=== PATIENT | female | born 1935 | race Caucasian/White ===

== ENCOUNTER 2020-07-05 10:18 | Emergency (ER) | payer MEDICARE, OTHER ==
[~2020-07-05 10:18] MED LIST: ACYCLOVIR800 MG PO; AMITIZA8 MCG PO; ATARAX25 MG PO; BACITRACIN15 GM TOP; BACLOFEN 10MG T10 MG PO; BUSPIRONE HCL15 M1 PO; BUSPIRONE HCL30 MG PO; CARAFATE1 GM PO; CIPROFLOXACIN500 M1 PO; COZAAR50 MG PO; CYTOTEC100 MCG PO; DESVENLAFAXINE100 M3 PO; DESVENLAFAXINE50 M3 PO; DIFLUCAN150 MG PO; DILAUDID2 MG PO; FLEXERIL10 MG PO; FLEXERIL5 MG PO; GABAPENTIN100 MG PO; LEVSIN-SL0.125 M1 SL; LIDOCAINE 5% P1 EACH TOP; LOSARTAN POTASS50 MG PO; METHOCARBAMOL500 MG PO; MISOPROSTOL PO; MYLICON80 MG PO; NEURONTIN100 MG PO; OMEPRAZOLE40 MG PO; ONDANSETRON HCL4 MG PO; ONDANSETRON ODT4 MG PO; ONDANSETRON ODT4 MG SL; PANTOPRAZOLE SO40 MG PO; PERCOCET 5-3251 EACH PO; PHENERGAN12.5 M1 PO; PHENERGAN25 M1 PO; PHENTERMINE H37.5 MG PO; PROTONIX 40MG T40 MG PO; QUETIAPINE FUM150 MG PO; REQUIP1 MG PO; ROBAXIN500 MG PO; ROPINIROLE HCL6 MG PO; SEROQUEL 25MG T25 MG PO; SINEQUAN50 MG PO; TRAMADOL HCL50 MG PO; VALACYCLOVIR1000 MG PO; VOLTAREN **OUT75 MG PO; ZANTAC150 MG PO
[2020-08-06] MEDS ORDERED: FOLIC ACID1 MG PO (06:11)
[2020-08-06] MEDS ORDERED: CYMBALTA60 MG PO (06:11)
[2020-08-06] MEDS ORDERED: NEURONTIN100 MG PO (06:13)
[2020-08-06] MEDS ORDERED: CETIRIZINE HCL10 MG PO (06:14)
[2020-08-06] MEDS ORDERED: CLONAZEPAM0.5 MG PO (06:14)
[2020-08-06] MEDS ORDERED: MIRAPEX1 MG PO (06:15)
[2020-08-06] MEDS ORDERED: HYDROXYZINE PAM25 MG PO (06:16)
[2020-08-06] MEDS ORDERED: SINGULAIR10 MG PO (06:16)
[2020-08-06] MEDS ORDERED: ZOLPIDEM TARTRAT5 MG PO (06:16)
[2020-08-06] MEDS ORDERED: ULTRAM50 MG PO (06:17)
[2020-08-06] MEDS ORDERED: PERCOCET 5-3251 EACH PO (06:48)
[2020-08-06] MEDS ORDERED: VENTOLIN HFA IN18 GM INH ×2 (06:51→06:52)
[2020-08-06] MEDS ORDERED: ASPIRIN325 MG PO (08:38)
[2020-09-04] MEDS ORDERED: ULTRAM50 MG PO (17:26)
[2020-09-23] MEDS ORDERED: NORCO 5/3251 EACH PO (11:31)
[2020-11-05] MEDS ORDERED: TRAMADOL HCL50 MG PO (13:04)
== END 2020-07-05 12:32 | disposition home or self-care (01) ==
LOC: FER 10:18
DX: M25.552 Pain in left hip (principal); M51.36 Other intervertebral disc degeneration, lumbar region; G89.29 Other chronic pain; I10 Essential (primary) hypertension; Z88.5 Allergy status to narcotic agent; W10.9XXA Fall (on) (from) unspecified stairs and steps, initial encounter; Y92.009 Unspecified place in unspecified non-institutional (private) residence as the place of occurrence of the external cause
CPT/HCPCS: 73502; 73721; J1170

== ENCOUNTER → 2020-08-06 | Day surgery (SDC) | payer MEDICARE, OTHER ==
[~2020-08-06] MED LIST changes: +ASPIRIN325 MG PO; +CETIRIZINE HCL10 MG PO; +CLONAZEPAM0.5 MG PO; +CYMBALTA60 MG PO; +FOLIC ACID1 MG PO; +HYDROXYZINE PAM25 MG PO; +MIRAPEX1 MG PO; +NORCO 5-325 TA1 EACH PO; +NORCO 5/3251 EACH PO; +SINGULAIR10 MG PO; +ULTRAM50 MG PO; +VENTOLIN HFA IN18 GM INH; +ZOLPIDEM TARTRAT5 MG PO
[2020-08-06 06:43] LABS: HCT 34.4 % (37.0-47.0); HGB 10.8 g/dl (12.5-16.0); MCH 27.7 pg (25.0-31.0); MCHC 31.4 g/dL (32.0-36.0); MCV 88.2 fL (78.0-100.0); MPV 10.2 fL (6.0-9.5); RBC 3.9 M/uL (4.20-5.40); RDW 15.9 % (11.5-14.0); WBC 4.6 K/uL (4.0-10.5)
[2020-08-06 07:30] LABS: ALBUMIN 3.3 g/dL (3.4-5.0); BILIRUBIN - TOTAL 0.5 mg/dL (0.2-1.0); BUN/CREAT RATIO (CALC) 14.6 RATIO; CREATININE 0.82 mg/dL (0.51-0.95); GLOBULIN (CALCULATION) 2.9 g/dL; POTASSIUM 3.9 mmol/L (3.5-5.1); TOTAL PROTEIN 6.2 g/dL (6.4-8.2)
== END | disposition home or self-care (01) ==
LOC: FAS 06:00
PROVIDERS: Orthopaedic Surgery
DX: S83.241A Other tear of medial meniscus, current injury, right knee, initial encounter (principal); M13.861 Other specified arthritis, right knee; J45.909 Unspecified asthma, uncomplicated; F32.9 Major depressive disorder, single episode, unspecified; I10 Essential (primary) hypertension; I25.2 Old myocardial infarction; Z88.8 Allergy status to other drugs, medicaments and biological substances; Z79.899 Other long term (current) drug therapy
CPT/HCPCS: 36415; 80053; 93005; J2001; J2250; J2370; J2405; J2704; J3010; J7120

== ENCOUNTER 2020-08-09 06:25 | Emergency (ER) | payer MEDICARE, OTHER ==
[~2020-08-09 06:25] MED LIST changes: -NORCO 5-325 TA1 EACH PO; -NORCO 5/3251 EACH PO
[2020-09-04] MEDS ORDERED: ULTRAM50 MG PO (17:26)
[2020-09-23] MEDS ORDERED: NORCO 5/3251 EACH PO (11:31)
[2020-11-05] MEDS ORDERED: TRAMADOL HCL50 MG PO (13:04)
== END 2020-08-09 08:42 | disposition home or self-care (01) ==
LOC: FER 06:25
DX: G89.18 Other acute postprocedural pain (principal); M25.561 Pain in right knee; G89.29 Other chronic pain; I25.2 Old myocardial infarction; J45.909 Unspecified asthma, uncomplicated; Z98.890 Other specified postprocedural states; Z79.891 Long term (current) use of opiate analgesic; Z88.5 Allergy status to narcotic agent
CPT/HCPCS: 99283; J1170

== ENCOUNTER 2020-08-14 18:19 | Emergency (ER) | payer MEDICARE, OTHER ==
[2020-09-04] MEDS ORDERED: ULTRAM50 MG PO (17:26)
[2020-09-23] MEDS ORDERED: NORCO 5/3251 EACH PO (11:31)
[2020-11-05] MEDS ORDERED: TRAMADOL HCL50 MG PO (13:04)
== END 2020-08-14 21:45 | disposition home or self-care (01) ==
LOC: FER 18:19
DX: M17.11 Unilateral primary osteoarthritis, right knee (principal); G89.29 Other chronic pain; I10 Essential (primary) hypertension; F32.9 Major depressive disorder, single episode, unspecified; F41.9 Anxiety disorder, unspecified; G62.9 Polyneuropathy, unspecified; Z88.5 Allergy status to narcotic agent; Z79.899 Other long term (current) drug therapy
CPT/HCPCS: 96372; 99283; J1100; J1885

== ENCOUNTER 2020-10-20 14:20 | Emergency (ER) | payer MEDICARE, OTHER ==
[~2020-10-20 14:20] MED LIST changes: +NORCO 5/3251 EACH PO
[2020-11-05] MEDS ORDERED: TRAMADOL HCL50 MG PO (13:04)
== END 2020-10-20 16:27 | disposition home or self-care (01) ==
LOC: FER 14:20
DX: M25.511 Pain in right shoulder (principal); M25.561 Pain in right knee; M25.551 Pain in right hip; R07.81 Pleurodynia; I10 Essential (primary) hypertension; Z88.5 Allergy status to narcotic agent; W01.0XXA Fall on same level from slipping, tripping and stumbling without subsequent striking against object, initial encounter; Y92.009 Unspecified place in unspecified non-institutional (private) residence as the place of occurrence of the external cause
CPT/HCPCS: 71111; 73502; 73560

== ENCOUNTER 2020-10-23 03:46 | Emergency (ER) | payer MEDICARE, OTHER ==
[2020-11-05] MEDS ORDERED: TRAMADOL HCL50 MG PO (13:04)
== END 2020-10-23 06:47 | disposition home or self-care (01) ==
LOC: FER 03:46
DX: S20.211A Contusion of right front wall of thorax, initial encounter (principal); I10 Essential (primary) hypertension; I25.2 Old myocardial infarction; Z88.5 Allergy status to narcotic agent; Z98.890 Other specified postprocedural states; Z87.09 Personal history of other diseases of the respiratory system; W17.89XA Other fall from one level to another, initial encounter; Y92.009 Unspecified place in unspecified non-institutional (private) residence as the place of occurrence of the external cause
CPT/HCPCS: 71101; 94010; 96372; J1170; J1885

== ENCOUNTER 2020-11-02 23:58 | Emergency (ER) | payer MEDICARE, OTHER ==
[2020-11-03] MEDS ORDERED: NORCO 5-325 TA1 EACH PO (03:17)
[2020-11-05] MEDS ORDERED: TRAMADOL HCL50 MG PO (13:04)
== END 2020-11-03 03:31 | disposition home or self-care (01) ==
LOC: FER 23:58
DX: G89.29 Other chronic pain (principal); M25.561 Pain in right knee; I10 Essential (primary) hypertension; Z98.890 Other specified postprocedural states; Z88.5 Allergy status to narcotic agent
CPT/HCPCS: 99283

== ENCOUNTER 2020-12-24 20:48 | Emergency (ER) | payer MEDICARE, OTHER ==
[~2020-12-24 20:48] MED LIST changes: +NORCO 5-325 TA1 EACH PO
[2020-12-24 21:19] LABS: BILIRUBIN NEGATIVE (NEGATIVE); BLOOD NEGATIVE Ery/uL (NEGATIVE); CLARITY CLEAR (CLEAR); COLOR YELLOW (YELLOW); GLUCOSE (U) NORMAL (NORMAL); LEUKOCYTES NEGATIVE Leu/uL (NEGATIVE); NITRITE NEGATIVE (NEGATIVE); PROTEIN NEGATIVE (NEGATIVE); SPECIFIC GRAVITY <=1.005 (1.001-1.030); UROBILINOGEN 0.2 mg/dL (0.2-1.0); pH 6.5 (5.0-9.0)
[2020-12-24 21:30] LABS: HCT 35.5 % (37.0-47.0); MCH 26.5 pg (25.0-31.0); MCV 85.5 fL (78.0-100.0); MPV 10.3 fL (6.0-9.5); RBC 4.15 M/uL (4.20-5.40); RDW 15.4 % (11.5-14.0); WBC 6.1 K/uL (4.0-10.5)
[2020-12-24 21:46] LABS: BUN/CREAT RATIO (CALC) 13.5 RATIO; CREATININE 1.04 mg/dL (0.51-0.95); POTASSIUM 4.4 mmol/L (3.5-5.1)
[2020-12-31] MEDS ORDERED: TRAMADOL HCL50 MG PO (08:30)
== END 2020-12-25 00:58 | disposition home or self-care (01) ==
LOC: FER 20:48
PROVIDERS: Emergency Medicine
DX: R53.83 Other fatigue (principal); I10 Essential (primary) hypertension; Z88.5 Allergy status to narcotic agent; Z20.822 Contact with and (suspected) exposure to COVID-19
CPT/HCPCS: 36415; 71045; 80048; 81003; 84443; 84484; 93005; U0002

== ENCOUNTER 2021-01-06 12:03 | Emergency (ER) | payer MEDICARE, OTHER ==
[2021-01-06 13:11] LABS: BILIRUBIN NEGATIVE (NEGATIVE); BLOOD NEGATIVE Ery/uL (NEGATIVE); CLARITY CLEAR (CLEAR); COLOR YELLOW (YELLOW); GLUCOSE (U) NORMAL (NORMAL); LEUKOCYTES NEGATIVE Leu/uL (NEGATIVE); NITRITE NEGATIVE (NEGATIVE); PROTEIN NEGATIVE (NEGATIVE); UROBILINOGEN 0.2 mg/dL (0.2-1.0)
== END 2021-01-06 14:12 | disposition home or self-care (01) ==
LOC: FER 12:03
PROVIDERS: Nurse Practitioner Family
DX: S06.0X9A Concussion with loss of consciousness of unspecified duration, initial encounter (principal); R41.3 Other amnesia; W22.8XXA Striking against or struck by other objects, initial encounter; V19.9XXA Pedal cyclist (driver) (passenger) injured in unspecified traffic accident, initial encounter; Y92.410 Unspecified street and highway as the place of occurrence of the external cause
CPT/HCPCS: 70450; 81003

== ENCOUNTER 2021-01-07 21:31 | Emergency (ER) | payer MEDICARE, OTHER ==
[2021-01-08 02:08] LABS: BILIRUBIN NEGATIVE (NEGATIVE); BLOOD NEGATIVE Ery/uL (NEGATIVE); CLARITY CLEAR (CLEAR); COLOR YELLOW (YELLOW); GLUCOSE (U) NORMAL (NORMAL); LEUKOCYTES TRACE Leu/uL (NEGATIVE); NITRITE NEGATIVE (NEGATIVE); PROTEIN NEGATIVE (NEGATIVE); UROBILINOGEN 0.2 mg/dL (0.2-1.0)
[2021-01-08 02:17] LABS: BACTERIA TRACE; SQUAMOUS EPITHELIAL CELLS RARE
== END 2021-01-08 04:15 | disposition home or self-care (01) ==
LOC: FER 21:31
PROVIDERS: Emergency Medicine
DX: S06.0X0A Concussion without loss of consciousness, initial encounter (principal); S10.93XA Contusion of unspecified part of neck, initial encounter; W19.XXXA Unspecified fall, initial encounter; Y92.009 Unspecified place in unspecified non-institutional (private) residence as the place of occurrence of the external cause
CPT/HCPCS: 70450; 72125; 81001

== ENCOUNTER 2021-02-07 05:01 | Emergency (ER) | payer MEDICARE, OTHER ==
[2021-02-07 05:51] LABS: BASOPHIL 1.1 % (0-2); EOSINOPHIL 3.7 % (0-7); HCT 35.1 % (37.0-47.0); HGB 10.8 g/dl (12.5-16.0); LYMPHOCYTE 30.1 % (15-48); MCH 26.7 pg (25.0-31.0); MCHC 30.8 g/dL (32.0-36.0); MCV 86.7 fL (78.0-100.0); MONOCYTE 12.4 % (0-12); MPV 9.7 fL (6.0-9.5); NEUTROPHIL 52.4 % (41-80); NRBC 0; PLT 159 K/uL (150-400); RBC 4.05 M/uL (4.20-5.40); RDW 15.5 % (11.5-14.0); WBC 3.6 K/uL (4.0-10.5)
[2021-02-07 06:30] LABS: LACTIC ACID 0.7 mmol/L (0.4-1.9)
[2021-02-07 06:48] LABS: ALBUMIN 3.1 g/dL (3.4-5.0); BILIRUBIN - TOTAL 0.3 mg/dL (0.2-1.0); BUN/CREAT RATIO (CALC) 16.7 RATIO; CREATININE 0.9 mg/dL (0.51-0.95); GLOBULIN (CALCULATION) 2.5 g/dL; POTASSIUM 4.2 mmol/L (3.5-5.1); TOTAL PROTEIN 5.6 g/dL (6.4-8.2)
== END 2021-02-07 09:06 | disposition home or self-care (01) ==
LOC: FER 05:01
PROVIDERS: Emergency Medicine Emergency Medical Services
DX: B34.9 Viral infection, unspecified (principal); I10 Essential (primary) hypertension; I25.2 Old myocardial infarction; J45.909 Unspecified asthma, uncomplicated; Z88.5 Allergy status to narcotic agent; Z88.2 Allergy status to sulfonamides; Z20.822 Contact with and (suspected) exposure to COVID-19
CPT/HCPCS: 36415; 71250; 80053; 83605; 83690; 84484; 85025; 86140; 93005; U0002

== ENCOUNTER 2021-02-25 12:45 | Emergency (ER) | payer MEDICARE, OTHER ==
[2021-02-25 13:33] LABS: BASOPHIL 0.9 % (0-2); EOSINOPHIL 2.2 % (0-7); HCT 36.7 % (37.0-47.0); HGB 11.4 g/dl (12.5-16.0); MCH 26.6 pg (25.0-31.0); MCHC 31.1 g/dL (32.0-36.0); MCV 85.7 fL (78.0-100.0); MONOCYTE 7.6 % (0-12); MPV 10.2 fL (6.0-9.5); NEUTROPHIL 60.1 % (41-80); NRBC 0; PLT 190 K/uL (150-400); RBC 4.28 M/uL (4.20-5.40); RDW 14.6 % (11.5-14.0); WBC 4.6 K/uL (4.0-10.5)
[2021-02-25 14:17] LABS: ALBUMIN 3.3 g/dL (3.4-5.0); BILIRUBIN - TOTAL 0.5 mg/dL (0.2-1.0); BUN/CREAT RATIO (CALC) 12.4 RATIO; CREATININE 0.89 mg/dL (0.51-0.95); GLOBULIN (CALCULATION) 2.9 g/dL; POTASSIUM 3.7 mmol/L (3.5-5.1); TOTAL PROTEIN 6.2 g/dL (6.4-8.2)
[2021-02-25 14:50] LABS: BILIRUBIN NEGATIVE (NEGATIVE); BLOOD NEGATIVE Ery/uL (NEGATIVE); CLARITY CLEAR (CLEAR); COLOR YELLOW (YELLOW); GLUCOSE (U) NORMAL (NORMAL); LEUKOCYTES NEGATIVE Leu/uL (NEGATIVE); NITRITE NEGATIVE (NEGATIVE); PROTEIN NEGATIVE (NEGATIVE); UROBILINOGEN 0.2 mg/dL (0.2-1.0)
[2021-02-27] MEDS ORDERED: GABAPENTIN100 MG PO (12:35)
== END 2021-02-25 15:59 | disposition home or self-care (01) ==
LOC: FER 12:45
PROVIDERS: Nurse Practitioner Family
DX: R10.84 Generalized abdominal pain (principal); G89.29 Other chronic pain; M54.9 Dorsalgia, unspecified; Z90.710 Acquired absence of both cervix and uterus; Z93.3 Colostomy status; Z90.49 Acquired absence of other specified parts of digestive tract; Z88.5 Allergy status to narcotic agent
CPT/HCPCS: 36415; 80053; 81003; 82150; 83690; 85025; J7030; Q9967

== ENCOUNTER 2021-04-24 13:50 | Emergency (ER) | payer MEDICARE, OTHER ==
[2021-04-24 14:29] LABS: BILIRUBIN NEGATIVE (NEGATIVE); BLOOD NEGATIVE Ery/uL (NEGATIVE); CLARITY CLEAR (CLEAR); COLOR YELLOW (YELLOW); GLUCOSE (U) NORMAL (NORMAL); LEUKOCYTES NEGATIVE Leu/uL (NEGATIVE); NITRITE NEGATIVE (NEGATIVE); PROTEIN NEGATIVE (NEGATIVE); UROBILINOGEN 0.2 mg/dL (0.2-1.0)
[2021-04-24 15:32] LABS: BASOPHIL 1.3 % (0-2); EOSINOPHIL 3.6 % (0-7); HCT 39.4 % (37.0-47.0); HGB 12.1 g/dl (12.5-16.0); LYMPHOCYTE 41.8 % (15-48); MCHC 30.7 g/dL (32.0-36.0); MCV 84.7 fL (78.0-100.0); MONOCYTE 11.5 % (0-12); NEUTROPHIL 41.8 % (41-80); NRBC 0; PLT 207 K/uL (150-400); RBC 4.65 M/uL (4.20-5.40); RDW 14.1 % (11.5-14.0); WBC 5.2 K/uL (4.0-10.5)
[2021-04-24 16:22] LABS: ALBUMIN 3.5 g/dL (3.4-5.0); BILIRUBIN - TOTAL 0.5 mg/dL (0.2-1.0); BUN/CREAT RATIO (CALC) 12.9 RATIO; CREATININE 0.93 mg/dL (0.51-0.95); POTASSIUM 4.6 mmol/L (3.5-5.1); TOTAL PROTEIN 6.5 g/dL (6.4-8.2)
[2021-04-24] MEDS ORDERED: PYRIDIUM100 MG PO (16:31)
== END 2021-04-24 16:25 | disposition home or self-care (01) ==
LOC: FER 13:50
PROVIDERS: Emergency Medicine Emergency Medical Services
DX: K59.00 Constipation, unspecified (principal); R30.0 Dysuria; I10 Essential (primary) hypertension; J45.909 Unspecified asthma, uncomplicated; Z88.5 Allergy status to narcotic agent; Z88.8 Allergy status to other drugs, medicaments and biological substances
CPT/HCPCS: 36415; 80053; 81003; 83605; 84145; 85025; 87088; J0696

== ENCOUNTER 2021-05-13 21:47 | Emergency (ER) | payer MEDICARE, OTHER ==
[~2021-05-13 21:47] MED LIST changes: +PYRIDIUM100 MG PO
[2021-05-14 04:07] LABS: EOSINOPHIL 4.2 % (0-7); HCT 39.3 % (37.0-47.0); HGB 12.1 g/dl (12.5-16.0); LYMPHOCYTE 28.6 % (15-48); MCH 26.4 pg (25.0-31.0); MCHC 30.8 g/dL (32.0-36.0); MCV 85.8 fL (78.0-100.0); MONOCYTE 8.8 % (0-12); MPV 9.5 fL (6.0-9.5); NEUTROPHIL 57.2 % (41-80); NRBC 0; PLT 206 K/uL (150-400); RBC 4.58 M/uL (4.20-5.40); RDW 15.2 % (11.5-14.0); WBC 6.2 K/uL (4.0-10.5)
[2021-05-14 04:08] LABS: BILIRUBIN NEGATIVE (NEGATIVE); BLOOD 1+ Ery/uL (NEGATIVE); CLARITY CLEAR (CLEAR); COLOR YELLOW (YELLOW); GLUCOSE (U) TRACE mg/dL (NORMAL); LEUKOCYTES 2+ Leu/uL (NEGATIVE); NITRITE POSITIVE (NEGATIVE); PROTEIN TRACE (LOW) mg/dL (NEGATIVE); SPECIFIC GRAVITY 1.015 (1.001-1.030); pH 5.5 (5.0-9.0)
[2021-05-14 04:14] LABS: BACTERIA 1+
[2021-05-14 04:54] LABS: ALBUMIN 3.8 g/dL (3.4-5.0); BILIRUBIN - TOTAL 0.4 mg/dL (0.2-1.0); BUN/CREAT RATIO (CALC) 15.6 RATIO; CREATININE 0.9 mg/dL (0.51-0.95); GLOBULIN (CALCULATION) 3.1 g/dL; MAGNESIUM 2.2 mg/dL (1.8-2.4); POTASSIUM 3.7 mmol/L (3.5-5.1); TOTAL PROTEIN 6.9 g/dL (6.4-8.2); VITAMIN D (25-OH) 36.1 ng/mL (30.0-100.0)
[2021-05-14] MEDS ORDERED: BACTRIM DS TAB1 EACH PO (05:05)
[2021-05-14] MEDS ORDERED: COLACE100 MG PO (05:06)
[2021-05-14] MEDS ORDERED: FEOSOL325 MG PO (05:06)
== END 2021-05-14 06:00 | disposition home or self-care (01) ==
LOC: FER 21:47
PROVIDERS: Internal Medicine
DX: N39.0 Urinary tract infection, site not specified (principal); D50.9 Iron deficiency anemia, unspecified; Z04.3 Encounter for examination and observation following other accident; J45.909 Unspecified asthma, uncomplicated; Z88.5 Allergy status to narcotic agent; Z88.1 Allergy status to other antibiotic agents
CPT/HCPCS: 36415; 70450; 71045; 73030; 73502; 80053; 81001; 82306; 82607; 82728; 82746; 83540; 83550; 83735; 84145; 84443; 85025; J3420

== ENCOUNTER 2021-05-27 00:36 | Emergency (ER) | payer MEDICARE, OTHER ==
[~2021-05-27 00:36] MED LIST changes: +BACTRIM DS TAB1 EACH PO; +COLACE100 MG PO; +FEOSOL325 MG PO
== END 2021-05-27 03:50 | disposition home or self-care (01) ==
LOC: FER 00:36
DX: S81.012A Laceration without foreign body, left knee, initial encounter (principal); I10 Essential (primary) hypertension; Z23 Encounter for immunization; Z88.5 Allergy status to narcotic agent; Z79.899 Other long term (current) drug therapy; Z88.8 Allergy status to other drugs, medicaments and biological substances; W18.40XA Slipping, tripping and stumbling without falling, unspecified, initial encounter; Y92.009 Unspecified place in unspecified non-institutional (private) residence as the place of occurrence of the external cause
CPT/HCPCS: 73560; 90471; 90715

== ENCOUNTER 2021-06-15 00:41 | Emergency (ER) | payer MEDICARE, OTHER | END 2021-06-15 04:40 | disposition home or self-care (01) | LOC: FER 00:41 | DX: M17.11 Unilateral primary osteoarthritis, right knee (principal); M25.551 Pain in right hip; I10 Essential (primary) hypertension; Z88.1 Allergy status to other antibiotic agents; Z88.2 Allergy status to sulfonamides; Z88.5 Allergy status to narcotic agent; Z79.899 Other long term (current) drug therapy; W19.XXXA Unspecified fall, initial encounter; Y92.009 Unspecified place in unspecified non-institutional (private) residence as the place of occurrence of the external cause | CPT/HCPCS: 73502; 73560 ==

== ENCOUNTER 2021-06-24 11:35 | Emergency (ER) | payer MEDICARE, OTHER | END 2021-06-24 14:08 | disposition left against medical advice (07) | LOC: FER 11:35 | DX: R10.31 Right lower quadrant pain (principal); I10 Essential (primary) hypertension; J45.909 Unspecified asthma, uncomplicated; Z88.3 Allergy status to other anti-infective agents; Z53.8 Procedure and treatment not carried out for other reasons; Z79.899 Other long term (current) drug therapy | CPT/HCPCS: 99283 ==

== ENCOUNTER 2021-10-23 01:08 | Day surgery (SDCO) | payer MEDICARE, OTHER ==
[~2021-10-23] VITALS: Ht 162.6 cm; Wt 67.1 kg
[2021-10-23 01:36] LABS: BASOPHIL 0.8 % (0-2); EOSINOPHIL 2.5 % (0-7); HCT 37.6 % (37.0-47.0); HGB 12.1 g/dl (12.5-16.0); LYMPHOCYTE 51.8 % (15-48); MCH 26.8 pg (25.0-31.0); MCHC 32.2 g/dL (32.0-36.0); MCV 83.4 fL (78.0-100.0); MONOCYTE 12.8 % (0-12); MPV 10.5 fL (6.0-9.5); NEUTROPHIL 31.8 % (41-80); NRBC 0; PLT 196 K/uL (150-400); RBC 4.51 M/uL (4.20-5.40); RDW 14.1 % (11.5-14.0)
[2021-10-23 02:03] LABS: ALBUMIN 3.8 g/dL (3.4-5.0); BILIRUBIN - TOTAL 0.3 mg/dL (0.2-1.0); CREATININE 0.86 mg/dL (0.51-0.95); GLOBULIN (CALCULATION) 3.1 g/dL; TOTAL PROTEIN 6.9 g/dL (6.4-8.2)
[2021-10-23 02:12] LABS: CORONAVIRUS 2019 SARS-COV-2 NEGATIVE (NEGATIVE); INFLUENZA A NAA NEGATIVE (NEGATIVE)
[2021-10-23 03:28] LABS: BILIRUBIN NEGATIVE (NEGATIVE); BLOOD NEGATIVE Ery/uL (NEGATIVE); CLARITY CLEAR (CLEAR); COLOR YELLOW (YELLOW); GLUCOSE (U) NORMAL (NORMAL); LEUKOCYTES 1+ Leu/uL (NEGATIVE); NITRITE NEGATIVE (NEGATIVE); PROTEIN NEGATIVE (NEGATIVE); SPECIFIC GRAVITY <=1.005 (1.001-1.030); UROBILINOGEN 0.2 mg/dL (0.2-1.0); pH 6.5 (5.0-9.0)
[2021-10-23 03:35] LABS: BACTERIA TRACE; URINARY WBC RARE
[2021-10-23] MEDS ORDERED: COZAAR50 MG PO (07:59)
[2021-10-23] MEDS ORDERED: CETIRIZINE HCL10 MG PO (08:00)
[2021-10-23] MEDS ORDERED: MIRAPEX0.25 MG PO (08:01)
[2021-10-23] MEDS ORDERED: TRAMADOL HCL50 MG PO (08:01)
[2021-10-23] MEDS ORDERED: NEURONTIN100 MG PO (08:02)
[2021-10-23] MEDS ORDERED: SINGULAIR10 MG PO (08:02)
[2021-10-23] MEDS ORDERED: REQUIP0.25 MG PO (08:03)
[2021-10-23] MEDS ORDERED: PHENERGAN6.25 MG/5 PO (08:07)
[2021-10-24 06:51] LABS: BASOPHIL 0.4 % (0-2); HCT 34.7 % (37.0-47.0); HGB 10.9 g/dl (12.5-16.0); LYMPHOCYTE 43.8 % (15-48); MCH 26.5 pg (25.0-31.0); MCHC 31.4 g/dL (32.0-36.0); MCV 84.2 fL (78.0-100.0); MONOCYTE 7.7 % (0-12); MPV 9.9 fL (6.0-9.5); NEUTROPHIL 44.9 % (41-80); NRBC 0; PLT 166 K/uL (150-400); RBC 4.12 M/uL (4.20-5.40); RDW 14.2 % (11.5-14.0); WBC 4.9 K/uL (4.0-10.5)
[2021-10-24 07:18] LABS: BUN/CREAT RATIO (CALC) 9.8 RATIO; CREATININE 0.92 mg/dL (0.51-0.95); POTASSIUM 3.7 mmol/L (3.5-5.1)
--- NOTE | 2021-10-24 12:01 | NUR ---
10/24 Ms. Emmanuel lives at home with her spouse. She has: rollator, rw, and cane. No discharg planning needs are anticipates.
[2021-10-24] MEDS ORDERED: AZITHROMYCIN250 MG PO (12:50)
== END 2021-10-24 14:21 | disposition home or self-care (01) ==
LOC: FER 01:08 → FMS 05:32 → FER 06:29 → FMS 10-24 14:21
PROVIDERS: Emergency Medicine; Nurse Practitioner Acute Care; ADMIT Internal Medicine
DX: K43.5 Parastomal hernia without obstruction or gangrene (principal); J20.9 Acute bronchitis, unspecified; G47.00 Insomnia, unspecified; Z20.822 Contact with and (suspected) exposure to COVID-19; I10 Essential (primary) hypertension; I25.10 Atherosclerotic heart disease of native coronary artery without angina pectoris; I25.2 Old myocardial infarction; E78.5 Hyperlipidemia, unspecified; M19.90 Unspecified osteoarthritis, unspecified site; G89.29 Other chronic pain; M54.9 Dorsalgia, unspecified; M25.561 Pain in right knee; Z93.3 Colostomy status; Z90.49 Acquired absence of other specified parts of digestive tract; Z88.1 Allergy status to other antibiotic agents; Z88.2 Allergy status to sulfonamides; Z88.5 Allergy status to narcotic agent; Z79.899 Other long term (current) drug therapy
CPT/HCPCS: 36415; 71250; 80048; 80053; 81001; 83880; 84145; 84484; 85025; 87088; 93005; 94010; 94640; G0378; J0456; J1170; J1885; J7050; U0002

== ENCOUNTER 2021-10-29 10:29 | Emergency (ER) | payer MEDICARE, OTHER ==
[~2021-10-29 10:29] MED LIST changes: +AZITHROMYCIN250 MG PO; +MIRAPEX0.25 MG PO; +PHENERGAN6.25 MG/5 PO; +REQUIP0.25 MG PO
[2021-10-29 11:42] LABS: BASOPHIL 0.9 % (0-2); EOSINOPHIL 3.5 % (0-7); HCT 39.5 % (37.0-47.0); HGB 12.4 g/dl (12.5-16.0); LYMPHOCYTE 42.5 % (15-48); MCH 26.1 pg (25.0-31.0); MCHC 31.4 g/dL (32.0-36.0); MONOCYTE 10.1 % (0-12); MPV 10.6 fL (6.0-9.5); NEUTROPHIL 42.8 % (41-80); NRBC 0; PLT 212 K/uL (150-400); RBC 4.76 M/uL (4.20-5.40); RDW 13.9 % (11.5-14.0); WBC 4.3 K/uL (4.0-10.5)
[2021-10-29 11:50] LABS: BUN/CREAT RATIO (CALC) 10.5 RATIO; CREATININE 0.86 mg/dL (0.51-0.95); POTASSIUM 4.1 mmol/L (3.5-5.1)
== END 2021-10-29 13:08 | disposition home or self-care (01) ==
LOC: FER 10:29
PROVIDERS: Emergency Medicine
DX: J40 Bronchitis, not specified as acute or chronic (principal); I10 Essential (primary) hypertension; J45.909 Unspecified asthma, uncomplicated; Z88.0 Allergy status to penicillin; Z88.5 Allergy status to narcotic agent; Z88.8 Allergy status to other drugs, medicaments and biological substances
CPT/HCPCS: 36415; 71046; 80048; 84484; 85025

== ENCOUNTER 2021-11-14 14:15 | Emergency (ER) | payer MEDICARE, OTHER | END 2021-11-14 15:18 | disposition left against medical advice (07) | LOC: FER 14:15 | DX: K14.6 Glossodynia (principal); K14.8 Other diseases of tongue; Z53.29 Procedure and treatment not carried out because of patient's decision for other reasons | CPT/HCPCS: 99281 ==

== ENCOUNTER 2022-01-09 01:17 | Emergency (ER) | payer MEDICARE, OTHER ==
[2022-01-09 02:02] LABS: ALBUMIN 3.5 g/dL (3.4-5.0); BILIRUBIN - TOTAL 0.4 mg/dL (0.2-1.0); BUN/CREAT RATIO (CALC) 19.8 RATIO; CREATININE 0.81 mg/dL (0.51-0.95); GLOBULIN (CALCULATION) 2.8 g/dL; POTASSIUM 4.1 mmol/L (3.5-5.1); TOTAL PROTEIN 6.3 g/dL (6.4-8.2)
[2022-01-09 02:21] LABS: BASOPHIL 1.2 % (0-2); EOSINOPHIL 3.5 % (0-7); HCT 35.3 % (37.0-47.0); HGB 11.3 g/dl (12.5-16.0); LYMPHOCYTE 46.1 % (15-48); MCV 84.2 fL (78.0-100.0); MONOCYTE 11.2 % (0-12); MPV 10.6 fL (6.0-9.5); NEUTROPHIL 37.8 % (41-80); NRBC 0; PLT 189 K/uL (150-400); RBC 4.19 M/uL (4.20-5.40); RDW 15.1 % (11.5-14.0); WBC 4.9 K/uL (4.0-10.5)
[2022-01-09 02:23] LABS: BILIRUBIN NEGATIVE (NEGATIVE); BLOOD NEGATIVE Ery/uL (NEGATIVE); CLARITY CLEAR (CLEAR); COLOR YELLOW (YELLOW); GLUCOSE (U) NORMAL (NORMAL); LEUKOCYTES 1+ Leu/uL (NEGATIVE); NITRITE NEGATIVE (NEGATIVE); PROTEIN NEGATIVE (NEGATIVE); SPECIFIC GRAVITY <=1.005 (1.001-1.030); UROBILINOGEN 0.2 mg/dL (0.2-1.0)
[2022-01-09 02:54] LABS: URINARY RBC RARE
[2022-01-10] MEDS ORDERED: NORCO 5-325 TA1 EACH PO (06:18)
[2022-01-10] MEDS ORDERED: ONDANSETRON HCL4 MG PO (06:18)
== END 2022-01-09 07:31 | disposition home or self-care (01) ==
LOC: FER 01:17
PROVIDERS: Emergency Medicine
DX: R10.9 Unspecified abdominal pain (principal); I10 Essential (primary) hypertension; J45.909 Unspecified asthma, uncomplicated; Z88.1 Allergy status to other antibiotic agents; Z88.2 Allergy status to sulfonamides; Z88.5 Allergy status to narcotic agent; Z79.899 Other long term (current) drug therapy
CPT/HCPCS: 36415; 80053; 81001; 82150; 83690; 85025; J1170; J2175; J2405; J7030

== ENCOUNTER 2022-01-10 | Emergency (ER) | payer MEDICARE, OTHER ==
[2022-01-10] MEDS ORDERED: ONDANSETRON HCL4 MG PO (06:18)
[2022-01-10] MEDS ORDERED: NORCO 5-325 TA1 EACH PO (06:18)
== END 2022-01-10 06:43 | disposition home or self-care (01) ==
LOC: FER
DX: G25.81 Restless legs syndrome (principal); Z88.1 Allergy status to other antibiotic agents; Z88.2 Allergy status to sulfonamides; Z88.5 Allergy status to narcotic agent
CPT/HCPCS: J1170; J2405

== ENCOUNTER 2022-01-11 03:32 | Emergency (ER) | payer MEDICARE, OTHER | END 2022-01-11 04:15 | disposition home or self-care (01) | LOC: FER 03:32 | DX: G25.81 Restless legs syndrome (principal); Z88.2 Allergy status to sulfonamides; Z88.5 Allergy status to narcotic agent; Z88.8 Allergy status to other drugs, medicaments and biological substances | CPT/HCPCS: 99283 ==

== ENCOUNTER 2022-01-23 06:53 | Emergency (ER) | payer MEDICARE, OTHER ==
[2022-01-23 08:05] LABS: BILIRUBIN NEGATIVE (NEGATIVE); BLOOD NEGATIVE Ery/uL (NEGATIVE); CLARITY CLEAR (CLEAR); COLOR YELLOW (YELLOW); GLUCOSE (U) NORMAL (NORMAL); LEUKOCYTES 1+ Leu/uL (NEGATIVE); NITRITE NEGATIVE (NEGATIVE); PROTEIN NEGATIVE (NEGATIVE); SPECIFIC GRAVITY <=1.005 (1.001-1.030); UROBILINOGEN 0.2 mg/dL (0.2-1.0); pH 5.5 (5.0-9.0)
[2022-01-23 08:06] LABS: AMPHETAMINES NEGATIVE (NEGATIVE); BARBITURATES NEGATIVE (NEGATIVE); ECSTASY (MDMA) NEGATIVE (NEGATIVE); MARIJUANA (THC) NEGATIVE (NEGATIVE); METHADONE NEGATIVE (NEGATIVE); OPIATES NEGATIVE (NEGATIVE); OXYCODONE NEGATIVE (NEGATIVE)
[2022-01-23] MEDS ORDERED: NORCO 5-325 TA1 EACH PO (08:53)
== END 2022-01-23 09:05 | disposition home or self-care (01) ==
LOC: FER 06:53
PROVIDERS: Emergency Medicine
DX: G89.29 Other chronic pain (principal); M54.50 Low back pain, unspecified; Z88.1 Allergy status to other antibiotic agents; Z88.5 Allergy status to narcotic agent; Z88.8 Allergy status to other drugs, medicaments and biological substances
CPT/HCPCS: 80305; 81001; 96372; J1170; J2405

== ENCOUNTER 2022-01-28 01:10 | Emergency (ER) | payer MEDICARE, OTHER ==
[2022-01-28] MEDS ORDERED: ONDANSETRON ODT4 MG PO (02:25)
[2022-01-28] MEDS ORDERED: PERCOCET 5-3251 EACH PO (02:25)
[2022-01-28] MEDS ORDERED: TRAMADOL HCL50 MG PO (15:26)
[2022-01-28] MEDS ORDERED: NEURONTIN300 MG PO (15:26)
== END 2022-01-28 03:30 | disposition home or self-care (01) ==
LOC: FER 01:10
DX: G62.9 Polyneuropathy, unspecified (principal); Z88.2 Allergy status to sulfonamides; Z88.5 Allergy status to narcotic agent; Z88.1 Allergy status to other antibiotic agents
CPT/HCPCS: J1170

== ENCOUNTER 2022-02-07 23:25 | Emergency (ER) | payer MEDICARE, OTHER ==
[~2022-02-07 23:25] MED LIST changes: +NEURONTIN300 MG PO
[2022-02-07 23:48] LABS: BASOPHIL 0.7 % (0-2); EOSINOPHIL 0.7 % (0-7); HCT 39.8 % (37.0-47.0); HGB 12.9 g/dl (12.5-16.0); LYMPHOCYTE 33.5 % (15-48); MCH 26.8 pg (25.0-31.0); MCHC 32.4 g/dL (32.0-36.0); MCV 82.6 fL (78.0-100.0); MONOCYTE 9.5 % (0-12); MPV 9.2 fL (6.0-9.5); NEUTROPHIL 55.3 % (41-80); NRBC 0; PLT 210 K/uL (150-400); RBC 4.82 M/uL (4.20-5.40); RDW 14.8 % (11.5-14.0); WBC 7.2 K/uL (4.0-10.5)
[2022-02-07 23:59] LABS: INR 0.93 (0.9-1.2); PROTHROMBIN TIME 12.2 SECONDS (11.9-13.9); PTT 27.9 SECONDS (24.9-34.6)
[2022-02-08 00:08] LABS: BILIRUBIN - TOTAL 0.6 mg/dL (0.2-1.0); BUN/CREAT RATIO (CALC) 21.8 RATIO; CREATININE 0.78 mg/dL (0.51-0.95); GLOBULIN (CALCULATION) 3.5 g/dL; POTASSIUM 4.1 mmol/L (3.5-5.1); TOTAL PROTEIN 7.5 g/dL (6.4-8.2)
[2022-02-08] MEDS ORDERED: OMEPRAZOLE40 MG PO (11:24)
== END 2022-02-08 03:37 | disposition home or self-care (01) ==
LOC: FER 23:25
PROVIDERS: Emergency Medicine
DX: R07.9 Chest pain, unspecified (principal); I10 Essential (primary) hypertension; Z88.2 Allergy status to sulfonamides; Z88.5 Allergy status to narcotic agent
CPT/HCPCS: 36415; 71045; 80053; 84484; 85025; 85610; 85730; 93005; J0360; J1170; J2550

== ENCOUNTER 2022-02-08 08:54 | Emergency (ER) | payer MEDICARE, OTHER ==
[2022-02-08 10:14] LABS: BASOPHIL 0.4 % (0-2); EOSINOPHIL 0.3 % (0-7); HCT 38.7 % (37.0-47.0); HGB 12.2 g/dl (12.5-16.0); LYMPHOCYTE 14.5 % (15-48); MCH 26.3 pg (25.0-31.0); MCHC 31.5 g/dL (32.0-36.0); MCV 83.6 fL (78.0-100.0); MONOCYTE 8.8 % (0-12); MPV 9.7 fL (6.0-9.5); NEUTROPHIL 75.9 % (41-80); NRBC 0; PLT 213 K/uL (150-400); RBC 4.63 M/uL (4.20-5.40); WBC 7.9 K/uL (4.0-10.5)
[2022-02-08 10:38] LABS: BILIRUBIN - TOTAL 0.7 mg/dL (0.2-1.0); CREATININE 0.73 mg/dL (0.51-0.95); GLOBULIN (CALCULATION) 2.8 g/dL; POTASSIUM 4.9 mmol/L (3.5-5.1); TOTAL PROTEIN 6.8 g/dL (6.4-8.2)
[2022-02-08] MEDS ORDERED: OMEPRAZOLE40 MG PO (11:24)
== END 2022-02-08 11:35 | disposition home or self-care (01) ==
LOC: FER 08:54
PROVIDERS: Emergency Medicine
DX: K20.90 Esophagitis, unspecified without bleeding (principal); I10 Essential (primary) hypertension; Z88.8 Allergy status to other drugs, medicaments and biological substances; Z79.899 Other long term (current) drug therapy
CPT/HCPCS: 36415; 80053; 83690; 85025; 93005; J2405; Q9967

== ENCOUNTER 2022-02-19 01:01 | Emergency (ER) | payer MEDICARE, OTHER ==
[2022-02-25] MEDS ORDERED: NORCO 5/3251 EACH PO (17:15)
== END 2022-02-19 03:41 | disposition home or self-care (01) ==
LOC: FER 01:01
DX: G57.93 Unspecified mononeuropathy of bilateral lower limbs (principal); Z88.2 Allergy status to sulfonamides; Z87.09 Personal history of other diseases of the respiratory system; Z79.899 Other long term (current) drug therapy
CPT/HCPCS: 96372; J1170; J2550

== ENCOUNTER 2022-02-26 03:22 | Emergency (ER) | payer MEDICARE, OTHER ==
[2022-02-26] MEDS ORDERED: NEURONTIN300 MG PO ×2 (10:47→17:50)
[2022-02-26] MEDS ORDERED: NORCO 5/3251 EACH PO (17:50)
== END 2022-02-26 04:03 | disposition home or self-care (01) ==
LOC: FER 03:22
DX: G89.29 Other chronic pain (principal); M54.50 Low back pain, unspecified; Z88.2 Allergy status to sulfonamides; Z88.5 Allergy status to narcotic agent; Z88.8 Allergy status to other drugs, medicaments and biological substances
CPT/HCPCS: 99283